=== PATIENT | female | born 1935 | race Caucasian/White ===

== ENCOUNTER 2017-10-30 13:28 | Outpatient (CLI) | payer MEDICARE, OTHER | END 2017-10-30 13:29 | disposition home or self-care (01) | LOC: ULT 13:28 | PROVIDERS: ATTEND Internal Medicine | DX: I51.7 Cardiomegaly (principal); I35.1 Nonrheumatic aortic (valve) insufficiency; I34.0 Nonrheumatic mitral (valve) insufficiency; I36.1 Nonrheumatic tricuspid (valve) insufficiency | CPT/HCPCS: 93306 ==

== ENCOUNTER 2019-01-29 12:31 | Outpatient (CLI) | payer MEDICARE, OTHER | END 2019-01-29 12:32 | disposition home or self-care (01) | LOC: ULT 12:31 | PROVIDERS: ATTEND Internal Medicine | DX: R01.1 Cardiac murmur, unspecified (principal); I08.8 Other rheumatic multiple valve diseases | CPT/HCPCS: 93306 ==

== ENCOUNTER 2024-11-09 15:55 | Observation (INO) | payer MEDICARE, OTHER ==
[~2024-11-09 15:55] MED LIST: Iopamidol-370 76% 500 ML MDV (1 ML CHARGE) ONE
[2024-11-09 17:12] LABS: #Basophils 0.05 10x3/uL (0.0-0.2); %Basophils 0.6 % (0.0-1.0); %Lymphocytes 39.4 % (21.0-51.0); %Monocytes 6.5 % (0.0-10.0); %Neutrophils 50.4 % (42.0-75.0); Hematocrit 46.4 % (36.0-47.0); Hemoglobin 14.7 g/dL (12.0-16.0); Mean Corpuscular HGB CONC 31.7 g/dL (32.0-36.0); Mean Corpuscular Hemoglobin 26.7 pg (27.0-31.0); Mean Corpuscular Volume 84.2 fL (78.0-98.0); Mean Platelet Volume 11.2 fL (7.4-10.4); Platelet Count 161 10x3/uL (130-400); RBC Distribution Width 12.4 % (11.5-14.5); Red Blood Cell (RBC) Count 5.51 mill/uL (4.20-5.40)
[2024-11-09 17:31] LABS: ALT (SGPT) 19 U/L (Less than 34); AST (SGOT) 27 U/L (11-34); Albumin 4.3 g/dL (3.1-4.5); Alkaline Phosphatase 72 U/L (40-110); Anion Gap 16 mmol/L (10-20); BUN (Urea Nitrogen) 26 mg/dL (9.8-20.1); Bilirubin, Total 0.4 mg/dL (0.3-1.2); Calc. Creatinine Clearance 0 mL/min (70-130); Calcium 10.2 mg/dL (7.8-10.44); Carbon Dioxide 23 mmol/L (23-31); Chloride 107 mmol/L (98-107); Estimated GFR 66; Globulin 3.3 g/dL (2.4-3.5); Glucose 86 mg/dL (83-110); Potassium 3.9 mmol/L (3.5-5.1); Protein, Total 7.6 g/dL (5.8-8.1); Sodium 142 mmol/L (136-145)
[2024-11-09 18:36] LABS: Lipase 62 U/L (8-78)
[2024-11-09 18:38] LABS: Acetaminophen Less than 10 mcg/mL (Less than 10); Alcohol Less than 10.0 mg/dL (Less than 10); Salicylate Less than 8.0 mg/dL (Less than 8.0)
[2024-11-09 18:41] LABS: Troponin I Less than 0.010 ng/mL (< 0.028)
[2024-11-09] MEDS ORDERED: Ondansetron PF 4 MG/2 ML Vial IVP PRN (19:14)
[2024-11-09] MEDS ORDERED: Ondansetron ODT 4 MG TAB PO PRN (19:14)
[2024-11-09] MEDS ORDERED: Ketorolac Tromethamine 30 MG (1 mL) VIAL IVP PRN (19:14)
[2024-11-09] MEDS ORDERED: hydrALAZINE 10 MG TAB PO PRN (19:34)
[2024-11-09 19:59] LABS: Bacteria/HPF None Seen HPF (None Seen); Bilirubin Negative (Negative); Blood, Urine Negative (Negative); CAUTI Indications for Culture Alt mental st,lethar; Clarity Clear (Clear); Glucose, Urine (Dipstick) Normal (Negative); Ketone, Urine Negative (Negative); Leukocyte Negative Leu/uL (Negative); Nitrite Negative (Negative); Protein, Urine (Dipstick) Negative (Neg-Trace); RBC/HPF 0-3 HPF (0-3); Squamous Epithelial None Seen HPF (0-3); Urobilinogen Normal mg/dL (Less than 2); WBC/HPF 0-3 HPF (0-3)
[2024-11-09] MEDS ORDERED: Aspirin Chewable 81 MG TAB ONE (20:02)
[2024-11-09 20:03] LABS: Amphetamine Not Detected (NotDetected); Barbiturates Screen Not Detected (NotDetected); Benzodiazepine Screen Not Detected (NotDetected); Cocaine Metabolite Screen Not Detected (NotDetected); Methadone Not Detected (NotDetected); Methamphetamine Not Detected (NotDetected); Opiate Screen Not Detected (NotDetected); Oxycodone Screen Not Detected (NotDetected); Phencyclidine (PCP) Not Detected (NotDetected); THC/Cannabinoid Screen Not Detected (NotDetected); Tricyclic Screen Not Detected (NotDetected); Urine Culture Reflex No No
[2024-11-09] MEDS ORDERED: Atorvastatin Calcium 40 MG TAB ONE (22:23)
[2024-11-09] MEDS: Atorvastatin Calcium 40 MG TAB PO SCH (22:36)
[2024-11-10 02:40] LABS: Troponin I Less than 0.010 ng/mL (< 0.028)
[2024-11-10 04:57] VITALS: BMI 24.0
[2024-11-10 05:47] LABS: #Basophils 0.05 10x3/uL (0.0-0.2); %Basophils 0.6 % (0.0-1.0); %Eosinophils 3.5 % (0.0-10.0); %Lymphocytes 38.4 % (21.0-51.0); %Neutrophils 48.3 % (42.0-75.0); Hemoglobin 14.7 g/dL (12.0-16.0); Mean Corpuscular HGB CONC 32.7 g/dL (32.0-36.0); Mean Corpuscular Volume 82.6 fL (78.0-98.0); Mean Platelet Volume 9.2 fL (7.4-10.4); Platelet Count 225 10x3/uL (130-400); RBC Distribution Width 12.5 % (11.5-14.5); Red Blood Cell (RBC) Count 5.45 mill/uL (4.20-5.40)
[2024-11-10 06:58] LABS: Troponin I Less than 0.010 ng/mL (< 0.028)
[2024-11-10 07:29] LABS: ALT (SGPT) 17 U/L (Less than 34); AST (SGOT) 27 U/L (11-34); Albumin 4.1 g/dL (3.1-4.5); Alkaline Phosphatase 68 U/L (40-110); Anion Gap 15 mmol/L (10-20); BUN (Urea Nitrogen) 23 mg/dL (9.8-20.1); Bilirubin, Total 0.6 mg/dL (0.3-1.2); Calc. Creatinine Clearance 48 mL/min (70-130); Calcium 9.7 mg/dL (7.8-10.44); Carbon Dioxide 22 mmol/L (23-31); Cardiac Risk 2.4 (Less than 4.5); Chloride 108 mmol/L (98-107); Cholesterol 179 mg/dl (< 200 Desired); Estimated GFR 71; Globulin 3.3 g/dL (2.4-3.5); Glucose 95 mg/dL (83-110); HDL Cholesterol 76 mg/dL (>60 Neg Risk); LDL Cholesterol, Calculated 89 mg/dL; Potassium 4.2 mmol/L (3.5-5.1); Protein, Total 7.4 g/dL (5.8-8.1); Sodium 141 mmol/L (136-145); Triglycerides 68 mg/dL (Less than 150)
[2024-11-10] MEDS ORDERED: Aspirin 81 mg Enteric Coated Tablet ONE (10:08)
[2024-11-10] MEDS ORDERED: Enoxaparin 40 MG (0.4 mL) SYRINGE ONE (10:08)
[2024-11-10] MEDS ORDERED: Famotidine/PF 20 mg/2ml Vial ONE (10:08)
[2024-11-10] MEDS: Enoxaparin 40 MG (0.4 mL) SYRINGE SC SCH (10:14)
[2024-11-10] MEDS: Aspirin 81 mg Enteric Coated Tablet PO SCH (10:14)
[2024-11-10] MEDS: Famotidine/PF 20 mg/2ml Vial SLOW IVP SCH (10:15)
[2024-11-10] MEDS ORDERED: Acetaminophen 325 MG TAB ONE (14:53)
[2024-11-10] MEDS: Acetaminophen 325 MG TAB PO SCH (16:02)
[2024-11-10 16:12] VITALS: TEMP 98.4
[2024-11-10 17:18] VITALS: BP 136/80
[2024-11-10] MEDS ORDERED: Rosuvastatin 5 MG TAB PO SCH (21:00)
== END 2024-11-10 18:36 | disposition home or self-care (01) ==
LOC: ERS 15:55 → ERHOLD 19:11
PROVIDERS: ADMIT Internal Medicine; ATTEND Internal Medicine
PROC: B24BZZZ Ultrasonography of Heart with Aorta (ICD-10-PCS; principal; 2024-11-10)
DX: R55 Syncope and collapse (principal); G45.9 Transient cerebral ischemic attack, unspecified; I67.4 Hypertensive encephalopathy; I10 Essential (primary) hypertension; E78.5 Hyperlipidemia, unspecified; Z79.82 Long term (current) use of aspirin; Z79.899 Other long term (current) drug therapy
CPT/HCPCS: 70450; 70496; 70498; 70551; 71045; 80053; 80061; 80306; 80307; 81001; 82140; 82550; 83690; 84484 ×3; 85025; 93005; 93306; 94760; 95812; 96372; G0378 ×2; J1650; J3490; Q9967; 36415; 84443